=== PATIENT | female | born 1990 | race Caucasian/White ===

== ENCOUNTER 2023-04-04 09:41 | Emergency (ER) | payer OTHER ==
[2023-04-04 09:54] VITALS: BP 129/80
--- NOTE | 2023-04-04 10:01 | ED Physician Documentation ---
PD HPI UPPER EXT INJURY - Stated complaint Stated Complaint: RT WRIST/THUMB PX - Chief complaint Chief Complaint: Trauma Ext - History obtained from History obtained from: Patient - History of Present Illness Location: Right, Finger Type of injury: Twist (she was pushing herself up ff the floor with her hands and felt a pop at the base of right thumb. Has had pain with ROM since that time, not improved.) Where injury occurred: Home Timing - onset: How many days ago (8) Timing - duration: Days (8) Timing - details: Abrupt onset, Still present Improved by: Rest. No: Meds (ibuprofen PRN) Worsened by: Moving (mostly with opposition and lateral movement, twisting like turning objects. Has not splinted it.), Palpating (at MCP base, ulnar side.) Associated symptoms: No: Weakness, Numbness, Swelling Similar symptoms before: Has not had sx before Recently seen: Not recently seen Review of Systems Skin: denies: Abrasion (s), Laceration (s) Neurologic: denies: Focal weakness, Numbness PD PAST MEDICAL HISTORY - Past Medical History Cardiovascular: None Musculoskeletal: None - Allergies Allergies/Adverse Reactions: Allergies Allergy/AdvReac Type Severity Reaction Status Date / Time No Known Drug Allergies Allergy Verified 04/04/23 10:45 PD ED PE NORMAL - Vitals Vital signs reviewed: Yes - General General: Alert and oriented X 3, No acute distress, Well developed/nourished - Derm Derm: Normal color, Warm and dry - Extremities Extremities: Other (right thumb base at ulnar side MCP with local tenderness. No laxity noted with UCL stress testing, but does hurt. Pain and weak movement due to it for opposition to little finger, not as bad to index finger. ) - Neuro Neuro: No motor deficit, No sensory deficit Results - Vitals Vitals: Vital Signs - 24 hr 04/04/23 09:51 Temperature 36.6 C Heart Rate 83 Respiratory 15 Rate Blood Pressure 129/80 O2 Saturation 96 Oxygen O2 Source Room air - Rads (name of study) right thumb Relevant Findings:: Prelim report reviewed, EMP independent interpretation of test (no fractures), See rad report PD Medical Decision Making - ED course Complexity details: reviewed results (no fractures. ), considered differential (seems likely UCL sprain but does not feel torn/loose. Can try thumb spica velcro splint. ), d/w patient Departure - Departure Disposition: 01 Home, Self Care Clinical Impression: Thumb sprain, Sprain of ulnar collateral ligament of metacarpophalangeal (MCP) joint of thumb Condition: Stable Record reviewed to determine appropriate education?: Yes Instructions: [facility] Follow-Up: [facility] [Provider Group] Comments: Your x-ray does not show any fractures. This seems like a sprain of the ligament at the base of the thumb. It does not feel torn to me. I think this will improve with splinting of the thumb base along with some anti- inflammatories such as ibuprofen or naproxen 2-3 times daily over the next week. Follow-up with orthopedics if not improved over the next week to week and a half. Discharge Date/Time: 04/04/23 10:59
--- NOTE | 2023-04-04 10:54 | XRAY Report ---
PROCEDURE: Finger(s) RT INDICATIONS: thumb base injury week ago TECHNIQUE: AP hand, 2 views of the thumb acquired. COMPARISON: None. FINDINGS: Bones: No fractures or dislocations. No suspicious bony lesions. Soft tissues: No suspicious soft tissue calcifications or masses. IMPRESSION: No acute bony abnormality. Reviewed by: Vinh Lewis on 04/04/2023 9:52 AM SEAN Approved by: Vinh Lewis on 04/04/2023 9:52 AM [email or web address] Station ID: [id number]
== END 2023-04-04 10:59 | disposition home or self-care (01) ==
LOC: ED 09:41
DX: S63.641A Sprain of metacarpophalangeal joint of right thumb, initial encounter (principal); X50.1XXA Overexertion from prolonged static or awkward postures, initial encounter; Y93.89 Activity, other specified
CPT/HCPCS: 99283

== ENCOUNTER 2023-12-12 11:30 | Outpatient (CLI) | payer OTHER ==
[2023-12-12 13:49] LABS: RHEUMATOID FACTOR NEGATIVE (Negative)
[2023-12-15 17:09] LABS: ANTINUCLEAR ANTIBODIES IFA Negative (.); CYCLIC CITRULLINATED PEP IGG/A 4 units (0-19)
== END 2023-12-12 11:31 | disposition home or self-care (01) ==
LOC: LAB 11:30
PROVIDERS: ATTEND Nurse Practitioner Obstetrics & Gynecology
DX: M25.569 Pain in unspecified knee (principal)
CPT/HCPCS: 36415; 85651; 86038; 86140; 86200; 86430